=== PATIENT | female | born 1980 | race Caucasian/White ===

== ENCOUNTER 2023-01-18 13:19 | Outpatient (CLI) | payer OTHER, SELFPAY ==
--- NOTE | ~2023-01-18 | MR_ITS ---
EXAMINATION: MRA brain wo con DATE: 01/18/2023 14:05 INDICATION: Migraine headache without aura. Family history of cerebral aneurysm. TECHNIQUE: Magnetic resonance angiography (MRA) of the brain was performed without intravenous contra st with T1-weighted SPGR by the 3D [id number]-[id number] technique. Maximum intensity projection 3D-reconstr uctions were obtained. COMPARISON: None. FINDINGS: The vertebral arteries are codominant. There is no significant stenosis of basilar artery or the post erior cerebral arteries. The posterior communicating arteries are normal. There is no significant dana nosis of the intracranial internal carotid arteries or anterior or middle cerebral arteries. Anterior communicating artery is normal. There is no aneurysm. IMPRESSION: 1. Normal MRA. Reviewed, dictated and finalized at location A. IMPRESSION: 1. Normal MRA.
== END 2023-01-18 13:20 | disposition home or self-care (01) ==
PROVIDERS: PCP Family Medicine; Visit Provider Family Medicine
DX: G43.009 Migraine without aura, not intractable, without status migrainosus (principal)
CPT/HCPCS: 70544

== ENCOUNTER 2023-07-16 11:17 | Emergency (ER) | payer OTHER, SELFPAY ==
[2023-07-16 11:19] VITALS: BP 120/81; PULSE 81; RESP 18; TEMP 36.4; O2SAT 100
--- NOTE | 2023-07-16 13:57 | PC.NURSE ---
pt up to desk stating she has to leave to get kids from school.
== END 2023-07-16 13:57 | disposition left against medical advice (07) ==
LOC: ANHED 14:03
PROVIDERS: PCP Family Medicine
DX: M25.512 Pain in left shoulder (principal)
CPT/HCPCS: 99199